=== PATIENT | female | born 1965 | race Caucasian/White ===

== ENCOUNTER 2020-01-07 16:00 | Outpatient (CLI) | payer OTHER | END 2020-01-07 16:01 | disposition home or self-care (01) | LOC: DTY/OP 16:00 | PROVIDERS: ATTEND Surgery | DX: E66.01 Morbid (severe) obesity due to excess calories (principal) | CPT/HCPCS: 97802 ==

== ENCOUNTER 2020-03-10 16:00 | Inpatient (IN) | payer OTHER, SELFPAY ==
[2020-03-11 10:16] VITALS: BMI 35.4
[2020-03-13] MEDS ORDERED: Fentanyl 100 MCG/2 ML VIAL ONE ×2 (07:01→10:39)
[2020-03-13] MEDS ORDERED: Midazolam HCl 2 mg/2 ml Vial ONE (07:01)
[2020-03-13] MEDS ORDERED: Scopolamine 1.5 mg/72 hour Patch ONE (07:02)
[2020-03-13] MEDS ORDERED: Famotidine/PF 20 mg/2ml Vial ONE (07:02)
[2020-03-13] MEDS ORDERED: Lidocaine 1% w/Epinephrine 1:100K 20 ML VIAL ONE (07:22)
[2020-03-13] MEDS ORDERED: Bupivacaine 0.25% HCL 30 ML VIAL ONE (07:22)
[2020-03-13] MEDS ORDERED: Levofloxacin 500 mg/D5W 100 ml Premix Bag ONE (08:31)
[2020-03-13] MEDS ORDERED: SUGAMMADEX SODIUM 200 MG/2 ML VIAL ONE (10:06)
[2020-03-13] MEDS ORDERED: hydrALAZINE 20 MG/ML VIAL SLOW IVP PRN (10:22)
[2020-03-13] MEDS ORDERED: Dextrose 5% in Water 1,000 ML IV PRN (10:22)
[2020-03-13] MEDS ORDERED: diphenhydrAMINE 50 MG/ML VIAL IVP PRN ×2 (10:22→10:27)
[2020-03-13] MEDS ORDERED: Dextrose 50% Abboject 50 ML SYRINGE SLOW IVP PRN (10:22)
[2020-03-13] MEDS ORDERED: Hydrocodone-Acetamin 15 ML UDCUP PO PRN (10:22)
[2020-03-13] MEDS ORDERED: Promethazine HCl 25 MG/ML VIAL IM PRN ×3 (10:22→10:27)
[2020-03-13] MEDS ORDERED: Ondansetron PF 4 MG/2 ML Vial IVP PRN ×2 (10:22→10:27)
[2020-03-13] MEDS ORDERED: diphenhydrAMINE 25 MG CAP PO PRN (10:27)
[2020-03-13] MEDS ORDERED: Naloxone HCl 0.4 mg/ml Vial IV PRN (10:27)
[2020-03-13] MEDS ORDERED: Zolpidem Tartrate 5 MG TAB PO PRN (10:27)
[2020-03-13] MEDS ORDERED: diphenhydrAMINE 50 MG/ML VIAL IM PRN (10:27)
[2020-03-13] MEDS ORDERED: Promethazine HCl 25 MG/ML VIAL SLOW IVP PRN (10:27)
[2020-03-13] MEDS ORDERED: Ondansetron HCl/PF 4 MG/2 ML Vial IVP PRN (10:27)
[2020-03-13] MEDS ORDERED: HYDROmorphone 10 mg/100 ml CADD IVPB PRN (10:27)
[2020-03-13] MEDS ORDERED: Communication Order-Pharmacy FS SCH (10:30)
[2020-03-13] MEDS ORDERED: D5 1/2 NS w/20 mEq KCL 1,000 ML ONE (10:40)
[2020-03-13] MEDS ORDERED: Promethazine HCl 25 MG/ML VIAL ONE (11:09)
[2020-03-13] MEDS: Ketorolac Tromethamine 30 MG/ML VIAL IVP SCH ×3 (12:02→23:12)
[2020-03-13] MEDS ORDERED: Glycopyrrolate 0.2 MG/ML 5 ML SYRINGE ONE (12:03)
[2020-03-13] MEDS ORDERED: Dexamethasone 20 MG/5 ML VIAL ONE (12:03)
[2020-03-13] MEDS ORDERED: Succinylcholine Chloride 20 MG/ML 10 ml SYRINGE FS ONE (12:03)
[2020-03-13] MEDS: D5 1/2 NS w/20 mEq KCL 1,000 ML IV SCH ×2 (12:03→19:30)
[2020-03-13] MEDS ORDERED: Ondansetron PF 4 MG/2 ML Vial ONE (12:03)
[2020-03-13] MEDS ORDERED: Lidocaine 1% PF 5 ML VIAL ONE (12:03)
[2020-03-13] MEDS ORDERED: Rocuronium Bromide 10 MG/ML (10ML VIAL) ONE (12:03)
[2020-03-13] MEDS ORDERED: PROPOFOL 200 MG/20 ML VIAL ONE (12:03)
--- NOTE | 2020-03-13 12:43 | OP ---
DATE OF PROCEDURE: 03/13/2020 PROCEDURES PERFORMED: 1. Laparoscopic removal of lap band and port with sleeve gastrectomy. 2. Esophagogastroscopy. INDICATIONS: This is a 55-year-old female. She had a previous lap band placed in [place] and initially had some success, but then developed severe reflux and dysphagia. She was unable to maintain any fluid in the system, regained her weight. FINDINGS: Quite a bit of adhesions around the band, 38-Indian bougie was used. DESCRIPTION OF PROCEDURE: After informed consent was obtained, the patient was taken to the operating room and given general endotracheal anesthesia. She was placed in supine position. Abdomen was prepped and draped in the usual fashion. Local anesthesia infiltrated subcutaneously and deep, and a 12-mm incision was performed approximately 8 inches below the xiphoid slightly to the left. Veress needle inserted. Drop test performed. Pneumoperitoneum was created to a volume of 2 L of carbon dioxide. Utilizing a bladeless 12-mm trocar and 0-degree laparoscopic, direct visual entry in the abdominal cavity was performed. Pneumoperitoneum was then created to a pressure of 15 mmHg and the patient placed in a steep reverse Trendelenburg position. Sandra liver retractor inserted. Left lobe of liver retracted superiorly. The pylorus was identified and a 12-mm port placed on the right beneath the pylorus. Two 12s were placed left subcostal. The lap band tubing was tracked down to the pin. It was divided proximal to the pin. Then, the buckle was dissected out. The lap band was open. The capsule was incised circumferentially and the lap band removed from around the stomach. Then, the lap band was removed from the abdomen. Then, the omentum was taken off the greater curvature 5 cm from the pylorus utilizing the LigaSure. Short gastrics divided with LigaSure. Left crura divided with LigaSure. A 38-Indian bougie inserted, directed into the antrum. Linear 60-mm green load stapler was used to divide the antrum to the bougie. A gold load used along the bougie and a series of blues through the angle of His. Intraoperative endoscopy was performed. The staple line inspected. There was no bleeding. Staple line then tested by inflating the new stomach with pressurized air and water. There was no air leak. Stomach decompressed. Scope removed. The remnant stomach removed from the abdomen through left the lateral port site. The fascia closed with 0 Vicryl suture and a GraNee needle. Trocars and retractors removed. Now, her port was placed in the upper midline, so I had to make an additional cut to get to the port. It was a low-profile port, secured by 5 separate Ethibond sutures. These were removed and the port removed. Hemostasis was assured. The subcu was reapproximated with interrupted 3-0 Vicryl. Skin closed with interrupted 4-0 Rapide. Dermabond applied. The patient tolerated the procedure well and transferred to Recovery in good condition. Sponge and needle count verified correct x2. Job ID: [id number]
--- NOTE | 2020-03-13 13:30 | HP ---
CHIEF COMPLAINT: Morbid obesity. HISTORY OF PRESENT ILLNESS: The patient is a 55-year-old female. She has lap band intolerance. She has gained weight back. She is morbidly obese. She is here for sleeve gastrectomy. PAST MEDICAL HISTORY: Hypertension. PAST SURGICAL HISTORY: 1. Hysterectomy. 2. Lap band. 3. Cholecystectomy. 4. Pelvic sling. MEDICATIONS: 1. Losartan. 2. Vyvanse. 3. Tramadol. FAMILY HISTORY: Father of heart disease. Mother of lung cancer. SOCIAL HISTORY: She is . Former smoker. Occasional alcohol. ALLERGIES: TO PENICILLIN AND LEVAQUIN, CAUSES JOINT PAIN. PHYSICAL EXAMINATION: VITAL SIGNS: Temperature, she is afebrile; pulse is 70; height 67 inches; weight 224; and body mass index 35.08. GENERAL: Well-developed, well-nourished female, in no apparent distress. HEENT: Unremarkable. LUNGS: Clear. HEART: Regular rate and rhythm. ABDOMEN: Soft, nondistended, and nontender. No masses or hernias. Incisions are all well healed. EXTREMITIES: Good pulses. No pedal edema. ASSESSMENT: Morbid obesity. PLAN: Laparoscopic removal of band with sleeve gastrectomy. CONSENT: Discussed planned procedure as well as risk of bleeding, infection, injury to esophagus, spleen, loops of bowel, need open, leakage from staple line. She understands and gives informed consent. Job ID: [id number]
[2020-03-14] MEDS: D5 1/2 NS w/20 mEq KCL 1,000 ML IV SCH ×2 (03:21→09:36)
[2020-03-14 04:57] LABS: #Lymphocytes 1.9 thou/uL (1.20-3.40); #Monocytes 1.1 thou/uL (0.11-0.59); #Neutrophils 8.7 thou/uL (1.40-6.50); %Basophils 0.2 % (0.0-1.0); %Eosinophils 0.2 % (0.0-10.0); %Lymphocytes 16.2 % (21.0-51.0); %Monocytes 9.1 % (0.0-10.0); %Neutrophils 74.4 % (42.0-75.0); Hemoglobin 9.9 g/dL (12.0-16.0); Mean Corpuscular HGB CONC 33.3 g/dL (32.0-36.0); Mean Corpuscular Hemoglobin 30.3 pg (27.0-31.0); Mean Platelet Volume 8.8 fL (7.4-10.4); Platelet Count 242 thou/uL (130-400); RBC Distribution Width 12.2 % (11.5-14.5); Red Blood Cell (RBC) Count 3.26 mill/uL (4.20-5.40); White Blood Cell (WBC) Count 11.6 thou/uL (4.8-10.8)
[2020-03-14 05:12] LABS: Anion Gap 11 mmol/L (10-20); BUN (Urea Nitrogen) 17 mg/dL (9.8-20.1); Calc. Creatinine Clearance 129 mL/min (70-130); Calcium 8.2 mg/dL (7.8-10.44); Carbon Dioxide 29 mmol/L (22-29); Chloride 100 mmol/L (98-107); Estimated GFR-MDRD 75; Glucose 143 mg/dL (70-105); Potassium 3.7 mmol/L (3.5-5.1); Sodium 136 mmol/L (136-145)
[2020-03-14] MEDS: Ketorolac Tromethamine 30 MG/ML VIAL IVP SCH ×2 (05:41→12:01)
--- NOTE | 2020-03-14 08:32 | RAD ---
Fluoroscopy Upper GI series single column: 03/14/2020 HISTORY: 55-year-old female immediately status post conversion of LAP-BAND 2 vertical sleeve gastrectomy. TECHNIQUE: Upright administration of 15 mL Gastrografin. Intermittent fluoroscopy performed. 10 minute delayed u pright radiograph abdomen obtained. FINDINGS: There is ectasia of distal esophagus with tortuosity at esophagogastric junction. The column of Gastr ografin remains in the dilated distal esophagus. A minimal amount enters the narrowed gastric channel. No leakage is detected, but no contrast is visualized distal to the narrowed gastric channel . IMPRESSION: Delayed emptying of ectatic and tortuous distal esophagus consistent with postsurgical edema. Consider short interval follow-up limited upper GI series with Gastrografin.
[2020-03-14] MEDS ORDERED: Pantoprazole 40 MG VIAL IVP SCH (09:00)
[2020-03-14] MEDS ORDERED: Enoxaparin Sodium 40 MG/0.4 ML SYRINGE SC SCH (09:00)
[2020-03-14] MEDS ORDERED: Hydrocodone-Acetamin 15 ML UDCUP PO PRN (11:39)
[2020-03-14 15:47] VITALS: BP 147/92; TEMP 98.4
--- NOTE | 2020-03-15 06:10 | DIS ---
DATE OF ADMISSION: 03/13/2020 DATE OF DISCHARGE: 03/14/2020 DISCHARGE DIAGNOSES: 1. Dysfunctional lap band. 2. Morbid obesity. PROCEDURES DURING ADMISSION: Laparoscopic removal of lap band and port, laparoscopic sleeve gastrectomy, intraoperative esophagogastroscopy, postoperative Gastrografin swallow. HOSPITAL COURSE: The patient was admitted, taken to the operating room. She underwent removal of the band sleeve gastrectomy. Postoperatively, she has done fine. Her x-ray showed some slow transit, but she was able to tolerate liquids well. She is discharged home on hydrocodone and Zofran. She will follow up with me in 2 weeks. Job ID: [id number]
== END 2020-03-14 15:50 | disposition home or self-care (01) | DRG 620 ==
LOC: SURG A 03-13 06:37
PROVIDERS: ADMIT Surgery; ATTEND Surgery
PROC: 0DP64CZ Removal of Extraluminal Device from Stomach, Percutaneous Endoscopic Approach (ICD-10-PCS; principal; 2020-03-13)
PROC: 0DB64Z3 Excision of Stomach, Percutaneous Endoscopic Approach, Vertical (ICD-10-PCS; 2020-03-13)
PROC: 0DJ68ZZ Inspection of Stomach, Via Natural or Artificial Opening Endoscopic (ICD-10-PCS; 2020-03-13)
DX: E66.01 Morbid (severe) obesity due to excess calories (principal); K95.09 Other complications of gastric band procedure; I10 Essential (primary) hypertension; K21.9 Gastro-esophageal reflux disease without esophagitis; R13.10 Dysphagia, unspecified; Z90.710 Acquired absence of both cervix and uterus; Z90.49 Acquired absence of other specified parts of digestive tract; Z98.84 Bariatric surgery status; Z88.0 Allergy status to penicillin; Z88.1 Allergy status to other antibiotic agents; Y83.1 Surgical operation with implant of artificial internal device as the cause of abnormal reaction of the patient, or of later complication, without mention of misadventure at the time of the procedure; Z68.35 Body mass index [BMI] 35.0-35.9, adult
CPT/HCPCS: 36415; 74240; 80048; 85025; 88307; 88312; C9113; J1100; J1650; J1885; J1956; J2250; J2405; J2550; J2704; J3010; J3480; S0020; S0028